=== PATIENT | male | born 1990 | race African-American/Black ===

== ENCOUNTER 2017-08-19 00:03 | Emergency (ER) | payer MEDICAID ==
[~2017-08-19] VITALS: Ht 170.2 cm; Wt 106.0 kg
[2017-08-19] MEDS ORDERED: LIDOCAINE HCL 1% 20ML VIAL (Pyxis) INJ INFIL ONE (03:30)
[2017-08-19] MEDS ORDERED: TETANUS, DIPHTHERIA, PERTUSSIS VAC/PF 0.5ML (>7YR OLD) IM ONE (03:30)
[2017-08-19] MEDS ORDERED: LIDOCAINE HCL/PF 1% 10 MG/ML 5ML VIAL IJ ONE (03:45)
[2017-08-19 05:01] VITALS: BP 121/78
== END 2017-08-19 05:02 | disposition home or self-care (01) ==
LOC: ER 00:03
DX: S01.01XA Laceration without foreign body of scalp, initial encounter (principal); S01.511A Laceration without foreign body of lip, initial encounter; F17.200 Nicotine dependence, unspecified, uncomplicated; F12.10 Cannabis abuse, uncomplicated; Z88.0 Allergy status to penicillin; Y08.89XA Assault by other specified means, initial encounter; Y93.89 Activity, other specified; Y92.89 Other specified places as the place of occurrence of the external cause; Y99.8 Other external cause status
CPT/HCPCS: 12001; 12011; 90471; 90715; 99284; J3490; X7700; Z7610

== ENCOUNTER 2017-08-28 16:10 | Emergency (ER) | payer MEDICAID ==
[~2017-08-28] VITALS: Ht 175.3 cm; Wt 80.0 kg
[2017-08-28 16:36] VITALS: BP 144/84
== END 2017-08-28 17:44 | disposition home or self-care (01) ==
LOC: ER 16:57
DX: Z48.02 Encounter for removal of sutures (principal); F12.10 Cannabis abuse, uncomplicated
CPT/HCPCS: 99281

== ENCOUNTER 2018-02-25 11:34 | Emergency (ER) | payer MEDICAID ==
[~2018-02-25] VITALS: Ht 172.7 cm; Wt 79.0 kg
[2018-02-25] MEDS ORDERED: SODIUM CHLORIDE 0.9% 1,000 ML IV ONE (11:55)
[2018-02-25] MEDS ORDERED: LORAZEPAM 2MG/ML CPJ IV ONE ×2 (12:00→16:00)
[2018-02-25 12:37] LABS: HEMATOCRIT. 44.7 % (42.0-52.0); HEMOGLOBIN. 14.9 g/dL (14.0-18.0); MEAN CORPUSCULAR HEMOGLOBIN 31.2 pg (28.0-32.0); MEAN CORPUSCULAR VOLUME 93.8 fL (80.0-94.0); RED BLOOD CELL COUNT 4.77 mill/uL (4.7-6.1); RED CELL DISTRIBUTION WIDTH 13.8 % (11.6-14.6)
[2018-02-25 12:41] LABS: CHLORIDE 101 mEq/L (98-107)
[2018-02-25 12:49] LABS: ETHANOL BLOOD < 10 mg/dL
[2018-02-25] MEDS ORDERED: OLANZAPINE 10 MG/VIAL IM ONE (13:00)
[2018-02-25 13:10] LABS: PLATELET ESTIMATE DECREASED
[2018-02-25 13:11] LABS: MEAN PLATELET VOLUME 14.3 fl (7.4-10.4); PLATELET 75 x1000/uL (130-400)
[2018-02-25 15:26] LABS: CLARITY URINE CLEAR (CLEAR); COLOR URINE YELLOW (YELLOW); KETONES URINE 1+ (NEGATIVE); LEUKOCYTE ESTERASE URINE NEGATIVE (NEGATIVE); NITRITE URINE NEGATIVE (NEGATIVE); OCCULT BLOOD URINE NEGATIVE (NEGATIVE); PH URINE 5.5 (4.5-8.0); PROTEIN URINE 1+ (NEGATIVE); SPECIFIC GRAVITY URINE 1.022 (1.005-1.030); UROBILINOGEN URINE 0.2 E.U./dL (0.2-1.0)
[2018-02-25] MEDS ORDERED: DIPHENHYDRAMINE 50MG/ML VIAL IV ONE (16:00)
[2018-02-25] MEDS ORDERED: HALOPERIDOL LACTATE 5MG/ML VIAL IM ONE ×2 (16:00→16:30)
[2018-02-25 16:14] LABS: *AMPHETAMINES SCREEN URINE PRESUMTIVE POSITIVE (NEGATIVE); *BARBITURATES SCREEN URINE NEGATIVE (NEGATIVE); *BENZODIAZEPINES SCREEN URINE NEGATIVE (NEGATIVE); *COCAINE SCREEN URINE NEGATIVE (NEGATIVE); CANNABINOID URINE SCREEN PRESUMTIVE POSITIVE (NEGATIVE); METHADONE URINE SCREEN NEGATIVE (NEGATIVE); OPIATES URINE SCREEN NEGATIVE (NEGATIVE); PHENCYCLIDINE URINE SCREEN NEGATIVE (NEGATIVE)
[2018-02-25 23:00] VITALS: BP 128/78
== END 2018-02-26 01:07 | disposition home or self-care (01) ==
LOC: ER 14:20
DX: F15.10 Other stimulant abuse, uncomplicated (principal); D69.6 Thrombocytopenia, unspecified; F12.10 Cannabis abuse, uncomplicated; Z88.0 Allergy status to penicillin
CPT/HCPCS: 36415; 80053; 80305; 81003; 85025; 93005; 96372; 96374; 96375; 96376; 99285; G0482; J1200; J1630; J2060; J3490; J7030

== ENCOUNTER 2018-04-23 14:14 | Emergency (ER) | payer MEDICAID ==
[~2018-04-23] VITALS: Ht 175.3 cm; Wt 80.0 kg
[2018-04-23] MEDS ORDERED: ZIPRASIDONE MESYLATE 20MG/VIAL IM ONE (14:45)
[2018-04-23] MEDS ORDERED: LORAZEPAM 2MG/ML CPJ IM PRN (14:45)
[2018-04-23] MEDS ORDERED: SODIUM CHLORIDE 0.9% 1,000 ML IV ONE ×2 (15:15→17:45)
[2018-04-23 15:52] LABS: BASOPHILS % 0.2 % (0.0-2.0); EOSINOPHILS % 0.1 % (0.0-5.0); HEMATOCRIT. 46.8 % (42.0-52.0); HEMOGLOBIN. 15.2 g/dL (14.0-18.0); LYMPHOCYTES % 9.7 % (20.0-50.0); MEAN CORPUSCULAR HEMOGLOBIN 30.5 pg (28.0-32.0); MEAN CORPUSCULAR VOLUME 94.2 fL (80.0-94.0); MEAN PLATELET VOLUME 13.1 fl (7.4-10.4); MONOCYTES % 8.8 % (2.0-8.0); NEUTROPHILS % 81.2 % (40.0-76.0); PLATELET 122 x1000/uL (130-400); RED BLOOD CELL COUNT 4.97 mill/uL (4.7-6.1); RED CELL DISTRIBUTION WIDTH 13.7 % (11.6-14.6)
[2018-04-23 15:58] LABS: CHLORIDE 97 mEq/L (98-107)
[2018-04-23 16:04] LABS: ETHANOL BLOOD < 10 mg/dL
[2018-04-23 16:08] LABS: CREATINE KINASE 190 IU/L (39-308)
[2018-04-23] MEDS ORDERED: KCL 20MEQ/100ML PREMIX 100 ML IV NR (16:30)
[2018-04-23 17:00] LABS: CLARITY URINE CLOUDY (CLEAR); COLOR URINE YELLOW (YELLOW); KETONES URINE NEGATIVE (NEGATIVE); LEUKOCYTE ESTERASE URINE NEGATIVE (NEGATIVE); NITRITE URINE NEGATIVE (NEGATIVE); OCCULT BLOOD URINE 1+ (NEGATIVE); PROTEIN URINE 2+ (NEGATIVE); SPECIFIC GRAVITY URINE 1.012 (1.005-1.030); UROBILINOGEN URINE 0.2 E.U./dL (0.2-1.0)
[2018-04-23 17:14] LABS: *AMPHETAMINES SCREEN URINE PRESUMTIVE POSITIVE (NEGATIVE); *BARBITURATES SCREEN URINE NEGATIVE (NEGATIVE)
[2018-04-23 17:15] LABS: *BENZODIAZEPINES SCREEN URINE NEGATIVE (NEGATIVE); *COCAINE SCREEN URINE NEGATIVE (NEGATIVE); CANNABINOID URINE SCREEN PRESUMTIVE POSITIVE (NEGATIVE); METHADONE URINE SCREEN NEGATIVE (NEGATIVE); OPIATES URINE SCREEN NEGATIVE (NEGATIVE); PHENCYCLIDINE URINE SCREEN NEGATIVE (NEGATIVE)
[2018-04-23 23:07] VITALS: BP 138/86
== END 2018-04-23 23:43 | disposition home or self-care (01) ==
LOC: ER 14:19
DX: S10.85XA Superficial foreign body of other specified part of neck, initial encounter (principal); S60.851A Superficial foreign body of right wrist, initial encounter; F15.129 Other stimulant abuse with intoxication, unspecified; F16.10 Hallucinogen abuse, uncomplicated; F12.10 Cannabis abuse, uncomplicated; J45.909 Unspecified asthma, uncomplicated; E87.6 Hypokalemia; E86.0 Dehydration; Z88.0 Allergy status to penicillin; I45.10 Unspecified right bundle-branch block; D72.829 Elevated white blood cell count, unspecified; Y35.893A Legal intervention involving other specified means, suspect injured, initial encounter; Y93.89 Activity, other specified; Y92.89 Other specified places as the place of occurrence of the external cause
CPT/HCPCS: 36415; 80053; 80305; 81003; 82550; 85025; 93005; 96365; 96372; 99284; G0482; J2060; J3480; J3486; J7030

== ENCOUNTER 2018-05-22 10:19 | Inpatient (IN) | payer MEDICAID ==
[~2018-05-22] VITALS: Ht 175.3 cm; Wt 70.0 kg
[2018-05-22] MEDS ORDERED: SODIUM CHLORIDE 0.9% 1,000 ML IV ONE ×3 (11:08→17:52)
[2018-05-22] MEDS ORDERED: LORAZEPAM 2MG/ML CPJ IM STA (11:08)
[2018-05-22] MEDS ORDERED: ONDANSETRON HCL 4MG/2ML INJ IV STA (11:08)
[2018-05-22] MEDS ORDERED: OLANZAPINE 10 MG/VIAL IM STA (11:08)
[2018-05-22] MEDS ORDERED: BACITRACIN ZINC OINT UDPKT TOP ONE (11:30)
[2018-05-22] MEDS ORDERED: LIDOCAINE 1%/EPI 1:100,000 10 ML VIAL IJ ONE (11:30)
[2018-05-22] MEDS ORDERED: TETANUS, DIPHTHERIA, PERTUSSIS VAC/PF 0.5ML (>7YR OLD) IM ONE (11:30)
[2018-05-22] MEDS ORDERED: LORAZEPAM 2MG/ML CPJ IV ONE ×5 (11:45→22:30)
[2018-05-22 12:08] LABS: BASOPHILS % 0.3 % (0.0-2.0); EOSINOPHILS % 0.1 % (0.0-5.0); HEMATOCRIT. 42.1 % (42.0-52.0); HEMOGLOBIN. 14.1 g/dL (14.0-18.0); LYMPHOCYTES % 10.6 % (20.0-50.0); MEAN CORPUSCULAR HEMOGLOBIN 30.5 pg (28.0-32.0); MEAN CORPUSCULAR VOLUME 91.2 fL (80.0-94.0); MONOCYTES % 10.1 % (2.0-8.0); NEUTROPHILS % 78.9 % (40.0-76.0); RED BLOOD CELL COUNT 4.62 mill/uL (4.7-6.1)
[2018-05-22 12:14] LABS: INR 1.2; PROTHROMBIN TIME 12.4 sec (9.1-11.1)
[2018-05-22 12:16] LABS: CHLORIDE 101 mEq/L (98-107)
[2018-05-22 12:24] LABS: CREATINE KINASE 646 IU/L (39-308)
[2018-05-22 12:26] LABS: ETHANOL BLOOD < 10 mg/dL
[2018-05-22 12:47] LABS: PLATELET 57 x1000/uL (130-400)
[2018-05-22 13:08] LABS: CLARITY URINE CLEAR (CLEAR); COLOR URINE YELLOW (YELLOW); KETONES URINE 1+ (NEGATIVE); LEUKOCYTE ESTERASE URINE NEGATIVE (NEGATIVE); NITRITE URINE NEGATIVE (NEGATIVE); OCCULT BLOOD URINE NEGATIVE (NEGATIVE); PH URINE 5.5 (4.5-8.0); PROTEIN URINE 2+ (NEGATIVE); SPECIFIC GRAVITY URINE 1.026 (1.005-1.030); UROBILINOGEN URINE 0.2 E.U./dL (0.2-1.0)
[2018-05-22 13:29] LABS: *AMPHETAMINES SCREEN URINE PRESUMTIVE POSITIVE (NEGATIVE); *BARBITURATES SCREEN URINE NEGATIVE (NEGATIVE); *BENZODIAZEPINES SCREEN URINE NEGATIVE (NEGATIVE); *COCAINE SCREEN URINE PRESUMTIVE POSITIVE (NEGATIVE)
[2018-05-22 13:30] LABS: CANNABINOID URINE SCREEN PRESUMTIVE POSITIVE (NEGATIVE); METHADONE URINE SCREEN NEGATIVE (NEGATIVE); OPIATES URINE SCREEN NEGATIVE (NEGATIVE); PHENCYCLIDINE URINE SCREEN NEGATIVE (NEGATIVE)
[2018-05-22 16:12] LABS: CREATINE KINASE 671 IU/L (39-308)
[2018-05-22] MEDS ORDERED: DEXTROSE 50% WATER 50ML SYRINGE IV ONE ×4 (20:14→22:30)
[2018-05-22] MEDS ORDERED: DEXT 10% WATER 1,000 ML IV SCH (20:45)
[2018-05-22] MEDS ORDERED: HALOPERIDOL LACTATE 5MG/ML VIAL IM ONE (22:00)
[2018-05-23] VITALS (25 sets, daily range): BP systolic 106–134; BP diastolic 48–78
[2018-05-23] MEDS ORDERED: DEXTROSE 50% WATER 50ML SYRINGE IV ONE
[2018-05-23] MEDS ORDERED: ONDANSETRON HCL 4MG/2ML INJ IV PRN (13:15)
[2018-05-23] MEDS ORDERED: ACETAMINOPHEN 325MG TABLET PO PRN (13:15)
[2018-05-23] MEDS: DIPHENHYDRAMINE 50MG/ML VIAL IV PRN (13:25)
[2018-05-23] MEDS: DEXT 5%/0.9% NACL 1,000 ML IV SCH ×2 (13:26→22:50)
[2018-05-23] MEDS: LORAZEPAM 2MG/ML CPJ IV PRN ×2 (13:26→17:06)
[2018-05-23] MEDS ORDERED: HALOPERIDOL LACTATE 5MG/ML VIAL IM NR (14:45)
[2018-05-23] MEDS ORDERED: POTASSIUM CHLORIDE INJ 40 MEQ in DEXT 5% WATER 500 ML IV NR (15:00)
[2018-05-23] MEDS ORDERED: INFLUENZA VACCINE IM ONE (16:00)
[2018-05-23] MEDS ORDERED: PNEUMOCOCCAL VACCINE IM ONE (16:00)
[2018-05-23] MEDS ORDERED: BLOOD SUGAR DIAGNOSTIC STRIP TEST SCH (16:30)
[2018-05-23] MEDS ORDERED: INSULIN LISPRO 100 UNITS/ML SUBCUT SCH (17:00)
[2018-05-23] MEDS: [UNRECOGNIZED DRUG - REMARK] IV SCH ×3 (17:07)
[2018-05-23] MEDS: INSULIN LISPRO 100 UNITS/ML SUBCUT SCH (20:00)
[2018-05-23] MEDS: BLOOD SUGAR DIAGNOSTIC STRIP TEST SCH (20:28)
[2018-05-24] VITALS (35 sets, daily range): BP systolic 98–150; BP diastolic 29–80
[2018-05-24] MEDS: BLOOD SUGAR DIAGNOSTIC STRIP TEST SCH ×6 (00:39→20:00)
[2018-05-24] MEDS: INSULIN LISPRO 100 UNITS/ML SUBCUT SCH ×6 (04:00→20:00)
[2018-05-24 06:18] LABS: HEMATOCRIT. 36.9 % (42.0-52.0); HEMOGLOBIN. 12.4 g/dL (14.0-18.0); MEAN CORPUSCULAR HEMOGLOBIN 30.8 pg (28.0-32.0); MEAN CORPUSCULAR VOLUME 91.6 fL (80.0-94.0); RED BLOOD CELL COUNT 4.03 mill/uL (4.7-6.1); RED CELL DISTRIBUTION WIDTH 14.1 % (11.6-14.6)
[2018-05-24 06:28] LABS: CHLORIDE 107 mEq/L (98-107)
[2018-05-24 06:46] LABS: PHOSPHORUS 3.4 mg/dL (2.5-4.9)
[2018-05-24] MEDS: [UNRECOGNIZED DRUG - REMARK] IV SCH ×3 (10:21)
[2018-05-24] MEDS: DEXT 5%/0.9% NACL 1,000 ML IV SCH ×2 (10:22→18:49)
[2018-05-24] MEDS: LORAZEPAM 2MG/ML CPJ IV PRN ×6 (10:32→21:01)
[2018-05-24 11:24] LABS: PLATELET 53 x1000/uL (130-400)
[2018-05-24 11:28] LABS: PLATELET ESTIMATE MARKEDLY DECREASED
[2018-05-24] MEDS: THIAMINE HCL 100MG TABLET PO SCH (11:58)
[2018-05-24] MEDS: DIPHENHYDRAMINE 50MG/ML VIAL IV PRN (14:18)
[2018-05-25] VITALS: BP 106/51
[2018-05-25] MEDS: BLOOD SUGAR DIAGNOSTIC STRIP TEST SCH ×7 (00:18→23:58)
[2018-05-25 04:00] VITALS: BP 100/48
[2018-05-25] MEDS: INSULIN LISPRO 100 UNITS/ML SUBCUT SCH ×7 (04:00→23:58)
[2018-05-25 08:00] VITALS: BP 128/86
[2018-05-25] MEDS: THIAMINE HCL 100MG TABLET PO SCH (09:15)
[2018-05-25] MEDS: [UNRECOGNIZED DRUG - REMARK] IV SCH ×3 (10:23)
[2018-05-25 12:00] VITALS: BP_SYST 133; BP_SYST 139; BP_DIAS 88; BP_DIAS 89
[2018-05-25] MEDS: DEXTROSE 50% WATER 50ML SYRINGE IV PRN ×3 (12:32→14:42)
[2018-05-25] MEDS: DEXT 5%/0.9% NACL 1,000 ML IV SCH (15:15)
[2018-05-25 16:00] VITALS: BP 133/88
[2018-05-25 20:00] VITALS: BP 119/67
[2018-05-26] VITALS: BP 121/70
[2018-05-26] MEDS: DEXT 5%/0.9% NACL 1,000 ML IV SCH (01:31)
[2018-05-26] MEDS: BLOOD SUGAR DIAGNOSTIC STRIP TEST SCH ×5 (03:59→20:00)
[2018-05-26 04:00] VITALS: BP 135/80
[2018-05-26] MEDS: INSULIN LISPRO 100 UNITS/ML SUBCUT SCH ×5 (04:00→20:00)
[2018-05-26 08:00] VITALS: BP 114/69
[2018-05-26] MEDS: THIAMINE HCL 100MG TABLET PO SCH (10:08)
[2018-05-26] MEDS: [UNRECOGNIZED DRUG - REMARK] IV SCH ×3 (10:09)
[2018-05-26] MEDS: DEXTROSE 50% WATER 50ML SYRINGE IV PRN (12:49)
[2018-05-26 16:00] VITALS: BP 125/75
[2018-05-26 18:36] LABS: CHLORIDE 98 mEq/L (98-107)
[2018-05-26] MEDS ORDERED: DEXTROSE 50% WATER 50ML SYRINGE IV PRN (19:45)
[2018-05-26 20:00] VITALS: BP 145/88
[2018-05-26] MEDS ORDERED: DIATR MEGLU/DIATRIZOATE SOLN 30ML PO NR (23:00)
[2018-05-27] VITALS (7 sets, daily range): BP systolic 113–131; BP diastolic 51–81
[2018-05-27] MEDS: INSULIN LISPRO 100 UNITS/ML SUBCUT SCH ×7 (03:40→23:57)
[2018-05-27] MEDS: BLOOD SUGAR DIAGNOSTIC STRIP TEST SCH ×7 (03:40→23:50)
[2018-05-27 06:37] LABS: HEMATOCRIT. 37.7 % (42.0-52.0); HEMOGLOBIN. 12.5 g/dL (14.0-18.0); MEAN CORPUSCULAR HEMOGLOBIN 30.6 pg (28.0-32.0); MEAN CORPUSCULAR VOLUME 92.2 fL (80.0-94.0); RED BLOOD CELL COUNT 4.09 mill/uL (4.7-6.1); RED CELL DISTRIBUTION WIDTH 13.7 % (11.6-14.6)
[2018-05-27] MEDS: DEXTROSE 50% WATER 50ML SYRINGE IV PRN ×2 (07:27→08:10)
[2018-05-27 07:44] LABS: CHLORIDE 103 mEq/L (98-107)
[2018-05-27] MEDS ORDERED: DEXT 5%/0.9% NACL 1,000 ML IV SCH (08:45)
[2018-05-27] MEDS: THIAMINE HCL 100MG TABLET PO SCH (09:53)
[2018-05-27 10:21] LABS: PLATELET ESTIMATE DECREASED
[2018-05-27 10:22] LABS: MEAN PLATELET VOLUME 13.5 fl (7.4-10.4); PLATELET 65 x1000/uL (130-400)
[2018-05-27] MEDS ORDERED: DEXT 10% WATER 1,000 ML IV SCH (14:30)
[2018-05-27] MEDS: DEXT 10% WATER 1,000 ML IV SCH (15:48)
[2018-05-28 04:00] VITALS: BP 112/67
[2018-05-28] MEDS: INSULIN LISPRO 100 UNITS/ML SUBCUT SCH ×5 (04:00→20:00)
[2018-05-28] MEDS: BLOOD SUGAR DIAGNOSTIC STRIP TEST SCH ×5 (04:32→20:05)
[2018-05-28 08:00] VITALS: BP 134/73
[2018-05-28] MEDS: THIAMINE HCL 100MG TABLET PO SCH (08:51)
[2018-05-28] MEDS: [UNRECOGNIZED DRUG - REMARK] IV SCH ×6 (10:36→10:38)
[2018-05-28 12:00] VITALS: BP 137/81
[2018-05-28] MEDS: DEXT 10% WATER 1,000 ML IV SCH ×2 (14:45→22:44)
[2018-05-28 16:00] VITALS: BP 119/70
[2018-05-28 20:00] VITALS: BP 127/71
[2018-05-29] VITALS: BP 124/61
[2018-05-29] MEDS: BLOOD SUGAR DIAGNOSTIC STRIP TEST SCH ×4 (00:27→11:55)
[2018-05-29 04:00] VITALS: BP 113/63
[2018-05-29] MEDS: INSULIN LISPRO 100 UNITS/ML SUBCUT SCH ×4 (04:00→11:54)
[2018-05-29 08:00] VITALS: BP 130/72
[2018-05-29] MEDS: THIAMINE HCL 100MG TABLET PO SCH (08:26)
[2018-05-29 08:27] VITALS: BP 116/74
[2018-05-29] MEDS: [UNRECOGNIZED DRUG - REMARK] IV SCH ×3 (10:27)
[2018-05-29 12:00] VITALS: BP 129/75
[2018-05-29 12:26] VITALS: BP 129/75
[2018-05-30 08:12] LABS: LUTEINIZING HORMONE 2.9 mIU/mL (1.7-8.6)
[2018-06-05 13:06] LABS: INSULIN AUTOANTIBODIES < 5.0 uU/mL (.)
== END 2018-05-29 15:22 | disposition home or self-care (01) | DRG 424 ==
LOC: ER 10:25 → MICUNO 22:26 → EDBEDREQDT 05-23 00:06 → EDBEDREQTM 05-23 00:06 → EDBEDREQSVC 05-23 00:06 → EDBEDREQ 05-23 00:07 → ENRESERV 05-23 10:05 → CANBEDREQ 05-23 18:20 → 6EST 05-24 19:15
PROVIDERS: ADMIT Internal Medicine; ATTEND Internal Medicine
PROC: 0HQHXZZ Repair Right Upper Leg Skin, External Approach (ICD-10-PCS; principal; 2018-05-22)
DX: E16.2 Hypoglycemia, unspecified (principal); G92 Toxic encephalopathy; D69.6 Thrombocytopenia, unspecified; E87.8 Other disorders of electrolyte and fluid balance, not elsewhere classified; M62.82 Rhabdomyolysis; S71.111A Laceration without foreign body, right thigh, initial encounter; E87.6 Hypokalemia; R80.9 Proteinuria, unspecified; F15.10 Other stimulant abuse, uncomplicated; J45.909 Unspecified asthma, uncomplicated; X58.XXXA Exposure to other specified factors, initial encounter; Y93.89 Activity, other specified; Y92.89 Other specified places as the place of occurrence of the external cause; Y99.8 Other external cause status; Z78.1 Physical restraint status; Z88.0 Allergy status to penicillin; Z83.3 Family history of diabetes mellitus
CPT/HCPCS: 36415; 71045; 74176; 80048; 80305; 80307; 80329; 82140; 82533; 82550; 82962; 83002; 83036; 83525; 83735; 84100; 84403; 84443; 84484; 85007; 85027; 86337; 87493; 90686; 90715; 90732; 93005; 96374; 96375; 99285; J1200; J1630; J1815; J2060; J2405; J3480; J3490; J7030; J7042; J7060; J7070; Q9963

== ENCOUNTER 2022-08-30 08:00 | Emergency (ER) | payer MEDICAID ==
[~2022-08-30] VITALS: Ht 180.3 cm; Wt 80.0 kg
[2022-08-30] MEDS ORDERED: KETOROLAC 60MG/2ML VIAL IM ONE (08:30)
[2022-08-30] MEDS ORDERED: IBUP-2029 MT (10:09)
[2022-08-30] MEDS ORDERED: METH-773 MT (10:09)
[2022-08-30 11:12] VITALS: BP 145/87
[2022-08-30] MEDS ORDERED: KETOROLAC 60MG/2ML VIAL IM SCH (11:15)
== END 2022-08-30 11:14 | disposition home or self-care (01) ==
LOC: ER 08:09
DX: M54.41 Lumbago with sciatica, right side (principal); J45.909 Unspecified asthma, uncomplicated; F15.10 Other stimulant abuse, uncomplicated
CPT/HCPCS: 72100; 96372; 99283; J1885; Z7610